=== PATIENT | female | born 1960 | race American Indian/Alaskan Native ===

== ENCOUNTER 2019-12-21 21:14 | Emergency (ER) | payer OTHER ==
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
[2019-12-22 07:51] VITALS: BP 124/79
== END 2019-12-22 07:53 | disposition home or self-care (01) ==
LOC: ED 21:14
DX: M94.0 Chondrocostal junction syndrome [Tietze] (principal); Z79.899 Other long term (current) drug therapy; V49.49XA Driver injured in collision with other motor vehicles in traffic accident, initial encounter; Y93.89 Activity, other specified; Y92.410 Unspecified street and highway as the place of occurrence of the external cause; Y99.8 Other external cause status
CPT/HCPCS: 71046